=== PATIENT | male | born 1990 | race Caucasian/White ===

== ENCOUNTER 2019-11-22 13:35 | Observation (INO) | payer SELFPAY ==
[~2019-11-22] VITALS: Ht 180.3 cm; Wt 80.7 kg
[2019-11-22] MEDS ORDERED: NS IV 1000 ML 1,000 ML IV SCH (13:43)
--- NOTE | 2019-11-22 13:43 | ED Neurological Problem ---
General Stated Complaint: DETOX Source: patient, EMS History of Present Illness Date Seen by Provider: Nov 22, 2019 Time Seen by Provider: 13:42 Initial Comments 29-year-old male brought in following an approximate 45 second seizure. Patient has no daily alcohol use. Reports that couple days ago he quit drinking. At that point he either drank a 12 pack of beer or a fifth of vodka. Patient reports he's unsure exactly what day quit as he is having difficulty remembering. Family called EMS after patient had approximately 45 second seizure that was tonic- clonic and then EMS reports he was postictal upon arrival. Patient is very jitt joseph and shaky. He does state however he is always a little bit jittery and shaky has been since high school. Patient reports he attempted to stop drinking due to his family suggesting him needing to. Allergies and Home Medications Allergies Coded Allergies: Sulfa (Sulfonamide Antibiotics) (Verified Allergy, Unknown, 11/22/19) Patient Home Medication List Home Medication List Reviewed: Yes Review of Systems Review of Systems Constitutional: see HPI Eyes: No Symptoms Reported Respiratory: no symptoms reported Cardiovascular: no symptoms reported Gastrointestinal: no symptoms reported Musculoskeletal: no symptoms reported Skin: no symptoms reported Psychiatric/Neurological: See HPI Past Wccequu-[id number]-[id number] Hx Past Med/Social Hx: Reviewed Nursing Past Med/Soc Hx Physical Exam Vital Signs Capillary Refill : Height, Weight, BMI Height: '" Weight: lbs. oz. kg; BMI Method: General Appearance: WD/WN, no apparent distress Respiratory: lungs clear, normal breath sounds Cardiovascular: normal peripheral pulses, tachycardia Gastrointestinal: non tender, soft Neurologic/Psychiatric: alert, other (patient very tremulous with clonus) Crainal Nerves: normal hearing, normal speech, PERRL; No abnormal pupil position, No facial droop Motor/Sensory: no motor deficit Skin: normal color, warm/dry Progress/Results/Core Measures Results/Orders Lab Results Laboratory Tests Test 11/22/19 13:40 11/22/19 14:00 Range/Units White Blood Count 8.6 4.3-11.0 10^3/uL Red Blood Count 5.27 4.30-5.52 10^6/uL Hemoglobin 16.4 13.3-17.7 g/dL Hematocrit 48 40-54 % Mean Corpuscular Volume 91 80-99 fL Mean Corpuscular Hemoglobin 31 25-34 pg Mean Corpuscular Hemoglobin Concent 34 32-36 g/dL Red Cell Distribution Width 13.0 10.0-14.5 % Platelet Count 241 130-400 10^3/uL Mean Platelet Volume 10.0 9.0-12.2 fL Immature Granulocyte % (Auto) 1 % Neutrophils (%) (Auto) 59 42-75 % Lymphocytes (%) (Auto) 23 12-44 % Monocytes (%) (Auto) 16 H 0-12 % Eosinophils (%) (Auto) 0 0-10 % Basophils (%) (Auto) 1 0-10 % Neutrophils # (Auto) 5.1 1.8-7.8 10^3/uL Lymphocytes # (Auto) 1.9 1.0-4.0 10^3/uL Monocytes # (Auto) 1.4 H 0.0-1.0 10^3/uL Eosinophils # (Auto) 0.0 0.0-0.3 10^3/uL Basophils # (Auto) 0.1 0.0-0.1 10^3/uL Immature Granulocyte # (Auto) 0.1 0.0-0.1 10^3/uL Sodium Level 136 135-145 MMOL/L Potassium Level 3.9 3.6-5.0 MMOL/L Chloride Level 97 L 98-107 MMOL/L Carbon Dioxide Level 21 21-32 MMOL/L Anion Gap 18 H 5-14 MMOL/L Blood Urea Nitrogen 7 7-18 MG/DL Creatinine 1.14 0.60-1.30 MG/DL Estimat Glomerular Filtration Rate > 60 BUN/Creatinine Ratio 6 Glucose Level 237 H 70-105 MG/DL Calcium Level 9.1 8.5-10.1 MG/DL Corrected Calcium 8.5-10.1 MG/DL Total Bilirubin 1.4 H 0.1-1.0 MG/DL Aspartate Amino Transf (AST/SGOT) 176 H 5-34 U/L Alanine Aminotransferase (ALT/SGPT) 160 H 0-55 U/L Alkaline Phosphatase 74 40-136 U/L Total Protein 7.8 6.4-8.2 GM/DL Albumin 4.7 H 3.2-4.5 GM/DL Salicylates Level < 5.0 L 5.0-20.0 MG/DL Acetaminophen Level < 10 L 10-30 UG/ML Serum Alcohol < 10 <10 MG/DL Urine Color YELLOW Urine Clarity CLEAR Urine pH 8.5 5-9 Urine Specific [place] 1.010 L 1.016-1.022 Urine Protein 2+ H NEGATIVE Urine Glucose (UA) NEGATIVE NEGATIVE Urine Ketones NEGATIVE NEGATIVE Urine Nitrite NEGATIVE NEGATIVE Urine Bilirubin NEGATIVE NEGATIVE Urine Urobilinogen 1.0 < = 1.0 MG/DL Urine Leukocyte Esterase NEGATIVE NEGATIVE Urine RBC (Auto) 2+ H NEGATIVE Urine RBC 5-10 H /HPF Urine WBC RARE /HPF Urine Squamous Epithelial Cells 0-2 /HPF Urine Crystals NONE /LPF Urine Bacteria NEGATIVE /HPF Urine Casts NONE /LPF Urine Mucus NEGATIVE /LPF Urine Culture Indicated NO Urine Opiates Screen NEGATIVE NEGATIVE Urine Oxycodone Screen NEGATIVE NEGATIVE Urine Methadone Screen NEGATIVE NEGATIVE Urine Propoxyphene Screen NEGATIVE NEGATIVE Urine Barbiturates Screen NEGATIVE NEGATIVE Ur Tricyclic Antidepressants Screen NEGATIVE NEGATIVE Urine Phencyclidine Screen NEGATIVE NEGATIVE Urine Amphetamines Screen NEGATIVE NEGATIVE Urine Methamphetamines Screen NEGATIVE NEGATIVE Urine Benzodiazepines Screen NEGATIVE NEGATIVE Urine Cocaine Screen NEGATIVE NEGATIVE Urine Cannabinoids Screen NEGATIVE NEGATIVE My Orders Orders - MCCALLUM,JAY L DO Ua Culture If Indicated (11/22/19 13:43) Cbc With Automated Diff (11/22/19 13:43) Comprehensive Metabolic Panel (11/22/19 13:43) Alcohol (11/22/19 13:43) Drug Screen Stat (Urine) (11/22/19 13:43) Acetaminophen (11/22/19 13:43) Salicylate (11/22/19 13:43) Ed Iv/Invasive Line Start (11/22/19 13:43) Ed Iv/Invasive Line Start (11/22/19 13:43) Ns Iv 1000 Ml (Sodium Chloride 0.9%) (11/22/19 13:43) Lorazepam Injection (Ativan Injection) (11/22/19 13:45) Medications Given in ED Current Medications Medications Dose Ordered Sig/Lety Route Start Time Stop Time Status Last Admin Dose Admin Lorazepam 2 mg ONCE ONCE IVP 11/22/19 13:45 11/22/19 13:49 DC 11/22/19 13:53 2 MG Departure Communication (Admissions) Time/Spoke to Admitting Phy: 15:30 admit to observation, CIWA protocol Impression Primary Impression: Alcohol withdrawal seizure without complication Disposition: 09 ADMITTED INPATIENT Condition: Stable Admissions Decision to Admit Reason: Admit from ER (General) Decision to Admit/Date: Nov 22, 2019 Time/Decision to Admit Time: 15:00 JAY MCCALLUM DO Nov 22, 2019 13:43
[2019-11-22] MEDS ORDERED: LORazepam INJ 2 MG/ML (ATIVAN) VIAL IVP ONE (13:45)
[2019-11-22 14:04] LABS: BASOPHILS # (AUTO) 0.1 10^3/uL (0.0-0.1); BASOPHILS % (AUTO) 1 % (0-10); EOSINOPHILS % (AUTO) 0 % (0-10); HEMATOCRIT 48 % (40-54); HEMOGLOBIN 16.4 g/dL (13.3-17.7); LYMPHOCYTES # (AUTO) 1.9 10^3/uL (1.0-4.0); LYMPHOCYTES % (AUTO) 23 % (12-44); MEAN CORPUSCULAR HEMOGLOBIN 31 pg (25-34); MEAN CORPUSCULAR HGB CONC 34 g/dL (32-36); MEAN CORPUSCULAR VOLUME 91 fL (80-99); MONOCYTES # (AUTO) 1.4 10^3/uL (0.0-1.0); MONOCYTES % (AUTO) 16 % (0-12); NEUTROPHILS # (AUTO) 5.1 10^3/uL (1.8-7.8); NEUTROPHILS % (AUTO) 59 % (42-75); PLATELET COUNT 241 10^3/uL (130-400); WHITE BLOOD COUNT 8.6 10^3/uL (4.3-11.0)
[2019-11-22 14:07] LABS: ALBUMIN 4.7 GM/DL (3.2-4.5); CHLORIDE 97 MMOL/L (98-107); POTASSIUM 3.9 MMOL/L (3.6-5.0); SODIUM 136 MMOL/L (135-145)
[2019-11-22 14:08] LABS: CALCIUM 9.1 MG/DL (8.5-10.1)
[2019-11-22 14:09] LABS: BILIRUBIN,URINE NEGATIVE (NEGATIVE); CLARITY,URINE CLEAR; COLOR,URINE YELLOW; GLUCOSE, URINE (UA) NEGATIVE (NEGATIVE); KETONES,URINE NEGATIVE (NEGATIVE); LEUKOCYTE ESTERASE ,URINE NEGATIVE (NEGATIVE); NITRITE,URINE NEGATIVE (NEGATIVE); PH,URINE 8.5 (5-9); PROTEIN,URINE 2+ (NEGATIVE)
[2019-11-22 14:10] LABS: GLUCOSE 237 MG/DL (70-105); TOTAL PROTEIN 7.8 GM/DL (6.4-8.2)
[2019-11-22 14:11] LABS: BILIRUBIN,TOTAL 1.4 MG/DL (0.1-1.0); CARBON DIOXIDE 21 MMOL/L (21-32)
[2019-11-22 14:13] LABS: ALKALINE PHOSPHATASE 74 U/L (40-136); CREATININE SERUM 1.14 MG/DL (0.60-1.30); GFR ESTIMATED > 60
[2019-11-22 14:15] LABS: BUN/CREATININE RATIO 6
[2019-11-22 14:16] LABS: ACETAMINOPHEN < 10 UG/ML (10-30); ALANINE AMINOTRANSFERASE 160 U/L (0-55); SALICYLATE < 5.0 MG/DL (5.0-20.0)
[2019-11-22 14:18] LABS: BACTERIA,URINE NEGATIVE /HPF; SQUAMOUS EPITHELIAL CELL,UR 0-2 /HPF; WBC,URINE RARE /HPF
[2019-11-22 14:34] LABS: AMPHETAMINE SCREEN, URINE NEGATIVE (NEGATIVE); BARBITURATE SCREEN URINE NEGATIVE (NEGATIVE); BENZODIAZEPINES SCREEN URINE NEGATIVE (NEGATIVE); CANNABINOID SCREEN, URINE NEGATIVE (NEGATIVE); COCAINE SCREEN URINE NEGATIVE (NEGATIVE); METHADONE STAT NEGATIVE (NEGATIVE); METHAMPHETAMINE SCREEN URINE S NEGATIVE (NEGATIVE); OPIATE SCREEN URINE NEGATIVE (NEGATIVE); OXYCODONE STAT NEGATIVE (NEGATIVE); PROPOXYPHENE STAT NEGATIVE (NEGATIVE); TRICYCLIC ANTIDEPRESSANTS SCRE NEGATIVE (NEGATIVE)
--- NOTE | 2019-11-22 14:34 | NUR ---
Pt repositioned and given warm blanket. Obtained verbal consent to speak with pt's father via phone.
--- NOTE | 2019-11-22 14:51 | NUR ---
Spoke with pt's father.
--- NOTE | 2019-11-22 16:24 | NUR ---
Spoke with pt's mother re admission.
[2019-11-22] MEDS ORDERED: 1/2 NS IV SOLUTION 1,000 ML IV PRN (16:34)
--- NOTE | 2019-11-22 16:35 | NUR ---
SRINIVASAN MUHAMMAD admitted to room 425-1, with an admitting diagnosis of ALCOHOL WITHDRAWAL, on 11/22/19 from ED via , accompanied by STAFF .SRINIVASAN MUHAMMAD introduced to surroundings, call light, bed controls, phone, TV, temperature control, lights, meal times, smoking policy, visitor policy, side rail policy, bathrooms and showers. Patient Rights given to patient in the handbook. SRINIVASAN MUHAMMAD verbalizes understanding that [facility] is not responsible for the loss or damage to any personal effects or valuables that are kept in the patients posession during their hospitalization. SRINIVASAN MUHAMMAD verbalizes understanding of Interdisciplinary Patient Education. Patient and/or family were informed about the Rapid Response Team and its purpose.
[2019-11-22 16:37] VITALS: BP 173/89
[2019-11-22] MEDS ORDERED: ONDANSETRON 4 MG/2 ML (SDV) Z0FRAN IV PRN (16:45)
[2019-11-22] MEDS ORDERED: ANTACID SUSP 30 ML UDC (MYLANTA) PO PRN (16:45)
[2019-11-22] MEDS ORDERED: LORazepam INJ 2 MG/ML (ATIVAN) VIAL IV PRN (16:45)
[2019-11-22] MEDS ORDERED: LORazepam INJ 2 MG/ML (ATIVAN) VIAL IM/IV PRN (16:45)
[2019-11-22] MEDS ORDERED: SENNA W/DOCUSATE (SENOKOT S) TABLET PO PRN (16:45)
[2019-11-22] MEDS ORDERED: ONDANSETRON 4 MG (ZOFRAN) ORAL DISSOLVE TAB SL PRN (16:45)
[2019-11-22] MEDS ORDERED: LORazepam 1 MG (ATIVAN) TAB PO PRN (16:45)
[2019-11-22] MEDS ORDERED: D5 1/2 NS 1000 ML IV SOLUTION 1,000 ML IV PRN (16:45)
[2019-11-22] MEDS ORDERED: CATHETER FLUSH 10 ML SYR IV PRN (17:45)
[2019-11-22] MEDS ORDERED: MELATONIN 3 MG TABLET PO PRN (18:45)
[2019-11-22] MEDS ORDERED: polyethylene glycoL POWDER 17 GM (MIRALAX) PACK PO PRN (18:45)
[2019-11-22] MEDS ORDERED: diphenhydrAMINE 25 MG TAB (BENADRYL) PO PRN (18:45)
[2019-11-22] MEDS ORDERED: BISACODYL 10 MG SUPP (DULCOLAX) PR PRN (18:45)
[2019-11-22] MEDS ORDERED: ACETAMINOPHEN 325 MG TABLET PO PRN (18:45)
[2019-11-22] MEDS ORDERED: ENOXAPARIN 40 MG/0.4 ML (LOVENOX) SYR SC SCH (19:00)
[2019-11-22 19:30] VITALS: BP 153/83
[2019-11-22] MEDS: DOCUSATE SODIUM 100 MG (COLACE) CAP PO SCH (20:38)
[2019-11-22] MEDS: SENNOSIDES 8.6 MG (SENOKOT) TAB PO SCH (20:38)
[2019-11-22 23:56] VITALS: BP 156/84
[2019-11-23 04:15] VITALS: BP 141/87
[2019-11-23 06:25] LABS: BASOPHILS # (AUTO) 0.1 10^3/uL (0.0-0.1); BASOPHILS % (AUTO) 1 % (0-10); EOSINOPHILS # (AUTO) 0.1 10^3/uL (0.0-0.3); EOSINOPHILS % (AUTO) 1 % (0-10); HEMATOCRIT 45 % (40-54); LYMPHOCYTES # (AUTO) 0.9 10^3/uL (1.0-4.0); LYMPHOCYTES % (AUTO) 9 % (12-44); MEAN CORPUSCULAR HEMOGLOBIN 31 pg (25-34); MEAN CORPUSCULAR HGB CONC 34 g/dL (32-36); MEAN CORPUSCULAR VOLUME 93 fL (80-99); MEAN PLATELET VOLUME 11.1 fL (9.0-12.2); MONOCYTES # (AUTO) 0.9 10^3/uL (0.0-1.0); MONOCYTES % (AUTO) 9 % (0-12); NEUTROPHILS # (AUTO) 7.9 10^3/uL (1.8-7.8); NEUTROPHILS % (AUTO) 81 % (42-75); PLATELET COUNT 162 10^3/uL (130-400); WHITE BLOOD COUNT 9.8 10^3/uL (4.3-11.0)
[2019-11-23 06:36] LABS: ALBUMIN 4.1 GM/DL (3.2-4.5); CHLORIDE 100 MMOL/L (98-107); POTASSIUM 3.8 MMOL/L (3.6-5.0); SODIUM 136 MMOL/L (135-145)
[2019-11-23 06:37] LABS: CALCIUM 8.4 MG/DL (8.5-10.1)
[2019-11-23 06:38] LABS: GLUCOSE 80 MG/DL (70-105)
[2019-11-23 06:39] LABS: CARBON DIOXIDE 22 MMOL/L (21-32)
[2019-11-23 06:40] LABS: BILIRUBIN,TOTAL 1.9 MG/DL (0.1-1.0)
[2019-11-23 06:41] LABS: PHOSPHORUS 3.7 MG/DL (2.3-4.7)
[2019-11-23 06:42] LABS: ALKALINE PHOSPHATASE 62 U/L (40-136); CREATININE SERUM 0.82 MG/DL (0.60-1.30); GFR ESTIMATED > 60
[2019-11-23 06:43] LABS: BUN/CREATININE RATIO 11
[2019-11-23 06:45] LABS: ALANINE AMINOTRANSFERASE 177 U/L (0-55); MAGNESIUM 1.8 MG/DL (1.6-2.4)
[2019-11-23 08:00] VITALS: BP 140/87
[2019-11-23] MEDS: SENNOSIDES 8.6 MG (SENOKOT) TAB PO SCH (09:29)
[2019-11-23] MEDS: DOCUSATE SODIUM 100 MG (COLACE) CAP PO SCH (09:29)
--- NOTE | 2019-11-23 09:35 | NUR ---
PHIL/RITO visited with the patient for social service consult. Plan: The patient will return home at time of discharge. He is agreeable to outpatient drug and alcohol treatment; however, he did not want this sw to make an appointment for him. Substance use: The patient reports that he started drinking daily a few months ago. His drink of choice is beer but sometimes will drink Vodka and Whiskey. The patient denies any significant event that lead to an increase in consumption. Patient reports that he is willing and wanting to continue with sobriety at this time. PHIL/RITO offered inpatient and outpatient treatment options in [place], [place], and [place] due to patient living in [place], [place]. He reports that outpatient is his preference. [facility] provided the patient with resources for outpatient treatment. He verbalized understanding. PHIL/RITO offered to set up initial appointment but he prefers to make appointment on his own. Occupation: Patient reports he is currently employed. Supports: The patient states that his family has had discussions with him regarding quieting drinking. He states "they just want what is best for me". The patient reports that he has a good support system. No further needs at this time. Addendum: 11/23/19 at 0949 by CASTILLO MONTEZ Mental Health: Does not see a mental health provider at this time. Addendum: 11/23/19 at 1219 by CASTILLO MONTEZ Update: PHIL/RITO was notified by the patient's nurse that Luigi the patient's father was present. He was requesting to speak to a elementary school social worker. PHIL/RITO visited with the patient's father and patient. PHIL/RITO went back over the available discharge options for treatment. Luigi verbalized understanding. They have decided on outpatient treatment. The patient's father is encouraging of patient seeking assistance for treatment. Patient states he is willing to look into options but is not certain he wants assistance. Luigi had further medication questions. PHIL/RITO asked the patient's nurse to visit further with Luigi and patient.
--- NOTE | 2019-11-23 10:26 | NUR ---
SPOKE WITH THE PT TO COMPLETE THE MED REC PT DENIES TAKING ANY PRESCRIPTION OR OTC MEDICATIONS
[2019-11-23 12:15] VITALS: BP 140/87
--- NOTE | 2019-11-23 12:15 | NUR ---
SRINIVASAN MUHAMMAD demonstrates understanding of discharge instructions and accurately returns instructions upon questioning. Copy of Post-Discharge Instructions and Medication Discharge Instructions given to PT. SRINIVASAN MUHAMMAD iS able to manage continuing needs after discharge. Patients belongings returned to PT. Skin dry and intact; no breakdown noted. Patient discharged from 425-1 on at 1215. SRINIVASAN MUHAMMAD left floor via WC, accompanied by STAFF.
--- NOTE | 2019-11-23 19:30 | Discharge Summary ---
Discharge Summary Hospital Course Problems/Dx: (1) Alcohol withdrawal seizure without complication Status: Acute Hospital Course Date of Admission: Nov 22, 2019 at 15:57 Admission Diagnosis : alcohol withdrawal seizure without complication Family Physician/Provider: Date of Discharge: 11/23/19 Discharge Diagnosis: alcohol withdrawal seizure without complication Hospital Course: Javi Estevez is a 29-year-old male who presented a after a witnessed seizure and was admitted with alcohol withdrawal seizure without complication. He was monitored for alcohol withdrawal but did not have any significant withdrawal during his hospital stay. He did not require any treatment with Ativan. He reports that he is 4 days out from his last drink. Social work was consulted and provided the patient and his father with resources. He was discharged home in stable condition. He should establish care with a primary care physician. Labs and Pending Lab Test: Laboratory Tests 11/23/19 06:00: White Blood Count 9.8, Red Blood Count 4.78, Hemoglobin 15.0, Hematocrit 45, Mean Corpuscular Volume 93, Mean Corpuscular Hemoglobin 31, Mean Corpuscular Hemoglobin Concent 34, Red Cell Distribution Width 13.2, Platelet Count 162, Mean Platelet Volume 11.1, Immature Granulocyte % (Auto) 0, Neutrophils (%) (Au to) 81H, Lymphocytes (%) (Auto) 9L, Monocytes (%) (Auto) 9, Eosinophils (%) (Auto) 1, Basophils (%) (Auto) 1, Neutrophils # (Auto) 7.9H, Lymphocytes # (Auto) 0.9L, Monocytes # (Auto) 0.9, Eosinophils # (Auto) 0.1, Basophils # (Auto) 0.1, Immature Granulocyte # (Auto) 0.0, Sodium Level 136, Potassium Level 3.8, Chloride Level 100, Carbon Dioxide Level 22, Anion Gap 14, Blood Urea Nitrogen 9, Creatinine 0.82, Estimat Glomerular Filtration Rate > 60, BUN/Creatinine Ratio 11, Glucose Level 80, Calcium Level 8.4L, Corrected Calcium 8.3L, Phosphorus Level 3.7, Magnesium Level 1.8, Total Bilirubin 1.9H, Aspartate Amino Transf (AST/SGOT) 213H, Alanine Aminotransferase (ALT/SGPT) 177H, Alkaline Phosphatase 62, Total Protein 7.0, Albumin 4.1 Home Meds Active No Active Prescriptions or Reported Medications Assessment/Pt Instructions Discontinue alcohol use. Establish care with her primary care physician. Discharge Planning: <30 minutes discharge planning Discharge Instructions Discharge Diet: No Restrictions Activity as Tolerated: Yes Discharge Physical Examination Vital Signs Vital Signs Date Time Temp Pulse Resp B/P (MAP) Pulse Ox O2 Delivery O2 Flow Rate FiO2 11/23/19 12:15 36.2 75 18 140/87 98 Room Air General Appearance: No Apparent Distress, WD/WN HEENT: PERRL/EOMI, Pharynx Normal Respiratory: Lungs Clear, Normal Breath Sounds, No Respiratory Distress Cardiovascular: Regular Rate, Rhythm, No Edema, No Murmur Gastrointestinal: Normal Bowel Sounds, Non Tender, Soft Extremity: Normal Inspection, Non Tender, No Pedal Edema Skin: Normal Color, Warm/Dry Neurologic/Psychiatric: Alert, Oriented x3, No Motor/Sensory Deficits, Normal Mood/Affect Allergies: Coded Allergies: Sulfa (Sulfonamide Antibiotics) (Verified Allergy, Unknown, 11/22/19) Discharge Summary Date of Admission Nov 22, 2019 at 15:57 Date of Discharge Nov 23, 2019 at 12:15 Discharge Date: Nov 23, 2019 Discharge Time: 12:15 Admission Diagnosis alcohol withdrawal seizure without complication Discharge Diagnosis (1) Alcohol withdrawal seizure without complication Status: Acute Clinical Quality Measures DVT/VTE Risk/Contraindication: Risk Factor Score Per Nursin RFS Level Per Nursing on Admit: 1=Low/No VTE PPX ALESSIA SANTANA MD Nov 23, 2019 19:30
== END 2019-11-23 12:15 | disposition home or self-care (01) ==
LOC: ER 13:37 → 4TH 15:57
PROVIDERS: ADMIT Internal Medicine; ATTEND Internal Medicine
DX: R56.9 Unspecified convulsions (principal); F10.239 Alcohol dependence with withdrawal, unspecified; Z88.2 Allergy status to sulfonamides
CPT/HCPCS: 80053 ×2; 80306; 81000; 83735; 84100; 85025 ×2; 99284; G0378; G0480 ×3; 36415; 80320; 80329